=== PATIENT | female | born 1960 | race Asian ===

== ENCOUNTER 2016-11-04 09:01 | Outpatient (CLI) | payer BC | END 2016-11-04 19:01 | disposition home or self-care (01) | LOC: MAMMO 09:01 | DX: Z12.31 Encounter for screening mammogram for malignant neoplasm of breast (principal) | CPT/HCPCS: G0202-TC ==

== ENCOUNTER 2018-03-30 12:29 | Outpatient (CLI) | payer BC | END 2018-03-30 20:19 | disposition home or self-care (01) | LOC: MAMMO 12:29 | DX: Z12.31 Encounter for screening mammogram for malignant neoplasm of breast (principal) ==

== ENCOUNTER 2018-06-27 14:14 | Outpatient (CLI) | payer OTHER | END 2018-06-27 20:07 | disposition home or self-care (01) | LOC: RAD 14:14 | DX: M79.641 Pain in right hand (principal) ==

== ENCOUNTER 2018-09-09 11:29 | Outpatient (CLI) | payer OTHER | END 2018-09-09 23:23 | disposition home or self-care (01) | LOC: US 11:29 | DX: R10.2 Pelvic and perineal pain (principal); R10.9 Unspecified abdominal pain; R19.00 Intra-abdominal and pelvic swelling, mass and lump, unspecified site ==

== ENCOUNTER 2018-10-13 11:39 | Outpatient (CLI) | payer OTHER ==
[2018-10-13 12:03] LABS: PLATELET COUNT 342 K/uL (152-353)
[2018-10-13 12:12] LABS: POTASSIUM 4.1 mmol/L (3.6-5.2)
== END 2018-10-13 19:44 | disposition home or self-care (01) ==
LOC: LABW 11:39
PROVIDERS: Nurse Practitioner Family
DX: H16.223 Keratoconjunctivitis sicca, not specified as Sjogren's, bilateral (principal); M06.4 Inflammatory polyarthropathy; R76.0 Raised antibody titer
CPT/HCPCS: 36415; 80053; 85027; 85651; 86140

== ENCOUNTER 2019-01-12 13:04 | Outpatient (CLI) | payer OTHER | END 2019-01-12 21:46 | disposition home or self-care (01) | LOC: RAD 13:04 | DX: R10.9 Unspecified abdominal pain (principal) ==

== ENCOUNTER 2019-01-14 09:32 | Outpatient (CLI) | payer OTHER ==
[2019-01-14 09:43] LABS: PLATELET COUNT 381 K/uL (152-353)
[2019-01-14 09:54] LABS: POTASSIUM 4.2 mmol/L (3.6-5.2)
== END 2019-01-14 23:30 | disposition home or self-care (01) ==
LOC: LABW 09:32
PROVIDERS: Nurse Practitioner Family
DX: H16.223 Keratoconjunctivitis sicca, not specified as Sjogren's, bilateral (principal); M47.816 Spondylosis without myelopathy or radiculopathy, lumbar region; R76.0 Raised antibody titer
CPT/HCPCS: 36415; 80053; 85027; 85651; 86140

== ENCOUNTER 2019-02-15 09:58 | Outpatient (CLI) | payer OTHER | END 2019-02-15 19:10 | disposition home or self-care (01) | LOC: RAD 09:58 | DX: H16.223 Keratoconjunctivitis sicca, not specified as Sjogren's, bilateral (principal); M47.816 Spondylosis without myelopathy or radiculopathy, lumbar region; R10.84 Generalized abdominal pain; R76.0 Raised antibody titer ==

== ENCOUNTER 2019-04-04 13:42 | Outpatient (CLI) | payer OTHER | END 2019-04-04 20:23 | disposition home or self-care (01) | LOC: MAMMO 13:42 | DX: Z12.31 Encounter for screening mammogram for malignant neoplasm of breast (principal) ==

== ENCOUNTER 2019-07-03 13:23 | Outpatient (CLI) | payer OTHER | END 2019-07-03 19:21 | disposition home or self-care (01) | LOC: RESP 13:23 | DX: R06.02 Shortness of breath (principal); M35.01 Sjogren syndrome with keratoconjunctivitis ==

== ENCOUNTER 2020-02-22 11:26 | Outpatient (CLI) | payer OTHER | END 2020-02-22 19:04 | disposition home or self-care (01) | LOC: RAD 11:26 | DX: M35.01 Sjogren syndrome with keratoconjunctivitis (principal); M47.816 Spondylosis without myelopathy or radiculopathy, lumbar region; Z68.29 Body mass index [BMI] 29.0-29.9, adult ==

== ENCOUNTER 2020-04-19 11:30 | Outpatient (CLI) | payer OTHER | END 2020-04-19 19:23 | disposition home or self-care (01) | LOC: MAMMO 11:30 | PROVIDERS: ATTEND Nurse Practitioner Family | DX: Z12.31 Encounter for screening mammogram for malignant neoplasm of breast (principal) ==

== ENCOUNTER 2020-08-01 12:55 | Outpatient (CLI) | payer OTHER | END 2020-08-01 21:34 | disposition home or self-care (01) | LOC: RESP 12:55 | PROVIDERS: ATTEND Nurse Practitioner Family | DX: M06.4 Inflammatory polyarthropathy (principal); M35.01 Sjogren syndrome with keratoconjunctivitis; M47.816 Spondylosis without myelopathy or radiculopathy, lumbar region ==

== ENCOUNTER 2021-03-07 14:58 | Emergency (ER) | payer OTHER ==
[~2021-03-07] VITALS: Ht 157.5 cm; Wt 74.8 kg
[2021-03-07 16:47] VITALS: BP 156/87; TEMP 98.2
== END 2021-03-07 16:52 | disposition home or self-care (01) ==
LOC: ED 14:58
DX: K59.09 Other constipation (principal)
CPT/HCPCS: 81000; 99282

== ENCOUNTER 2021-03-10 09:39 | Outpatient (CLI) | payer OTHER | END 2021-03-10 20:03 | disposition home or self-care (01) | LOC: RAD 09:39 | PROVIDERS: ATTEND Nurse Practitioner Family | DX: M35.01 Sjogren syndrome with keratoconjunctivitis (principal) ==

== ENCOUNTER 2021-06-11 12:58 | Outpatient (CLI) | payer BC | END 2021-06-11 19:00 | disposition home or self-care (01) | LOC: MAMMO 12:58 | PROVIDERS: ATTEND Nurse Practitioner Family | DX: Z12.31 Encounter for screening mammogram for malignant neoplasm of breast (principal) ==

== ENCOUNTER 2021-10-31 09:12 | Outpatient (CLI) | payer BC | END 2021-10-31 21:15 | disposition home or self-care (01) | LOC: RESP 09:12 | PROVIDERS: ATTEND Nurse Practitioner Family | DX: M35.01 Sjogren syndrome with keratoconjunctivitis (principal); R76.0 Raised antibody titer; Z79.899 Other long term (current) drug therapy ==

== ENCOUNTER 2022-05-08 12:48 | Outpatient (CLI) | payer MEDICARE | END 2022-05-08 19:54 | disposition home or self-care (01) | LOC: RAD 12:48 | PROVIDERS: ATTEND Nurse Practitioner Family | DX: M06.4 Inflammatory polyarthropathy (principal); M35.05 Sjogren syndrome with inflammatory arthritis; M47.816 Spondylosis without myelopathy or radiculopathy, lumbar region; R76.0 Raised antibody titer; Z79.899 Other long term (current) drug therapy ==

== ENCOUNTER 2022-06-18 11:06 | Outpatient (CLI) | payer OTHER | END 2022-06-18 21:24 | disposition home or self-care (01) | LOC: MAMMO 11:06 | PROVIDERS: ATTEND Nurse Practitioner Family | DX: Z12.31 Encounter for screening mammogram for malignant neoplasm of breast (principal) ==